=== PATIENT | male | born 1990 | race Caucasian/White ===

== ENCOUNTER 2016-07-05 17:35 | Inpatient (IN) | payer BC, OTHER ==
[~2016-07-05] VITALS: Ht 193 cm; Wt 77.1 kg
[~2016-07-05 17:35] MED LIST: CLON0.1T14 PO; DICY20TA28 PO; DIPH50CA37 PO; Gabapentin PO; HYDR-3895 PO; Ibuprofen PO; METH-33 PO; NICO4GUM BC; QUET50TA PO
--- NOTE | 2016-07-05 20:55 | NUR ---
2054 25 year old, well-nourished, caucasion male admitted ambulatory to room# 319. Gait is steady and brisk. Patient is alert and oriented to person, place, day, date, time and her personal situation. Patient responds to nurse's greeting and introduction with a smile and, " Hi, I was just here the first part of last month. Do you remember me?" Patient's color is pink and his skin is clean, warm, dry and intact. Lung sounds are clear bilaterally and active bowel noted X 4 abdominal Quads, per auscultation. Patient is 6 feet and 4 inches and he weighs 170 lbs. Patient states that he is allergic to Ceclor and Penicillins. Patient states also that he has a seizure history, that is drug-related, the last seizure occurring 'around December,. Patient states that he has a history of anxiety and depression and he takes medication at times for same. Medication ( Topamax 25mg p.o.) brought with patient reconciled per floor protocol. Patient denies any regular PCP. Patient is admitted for (1) Heroin use, daily IV, 1 gram. Last use was 1 gram IV on 07/04/16 at 4 p.m. Patient has been using heroin at this rate for 3 weeks, but has been using heroin( on/off) since age 13 (2) Xanax use, daily P.O., 12 mg. Last use was 12 mg on 07/04/16 at 4 p.m. Patient has been using Xanax at this rate for 3 weeks, but has been using Xanax (on/off) since age 11. Patient longest period of sobriety was 10 months, from April 2013 to January,. Patient states that he has OD'd at least twice. Vital signs are: 98.6-97-18 135/89, O2 Sat 99%, COWS 6. Patient denies any specific discomfort, but he states that he is only just beginning to " feel a little uncomfortable", since his last drug use on 07/04/16. Patient is friendly, cooperative and verbally appropriate. Fluids taken ad vinay and patient states that he is very oriented to his room, nurse call light and [facility] floor. Bed is locked and in lowest position, padded bed rails are up X 2 and call light at patient's hand.
[2016-07-05] MEDS ORDERED: ACETAMINOPHEN 325 MG TABLET PO PRN (21:45)
[2016-07-05] MEDS ORDERED: IBUPROFEN 400 MG TABLET PO PRN (21:45)
[2016-07-05] MEDS ORDERED: MIRALAX 17 GM POWD.PACK PO PRN (21:45)
[2016-07-05] MEDS ORDERED: MAGNESIUM HYDROXIDE 30 ML LIQUID UDC PO PRN (21:45)
[2016-07-05] MEDS ORDERED: CLONIDINE HCL 0.1 MG TABLET PO PRN (21:45)
[2016-07-05] MEDS ORDERED: LORAZEPAM 2 MG/1 ML VIAL IM PRN (21:45)
[2016-07-05] MEDS ORDERED: ONDANSETRON ODT 4 MG TAB.RAPDIS SL PRN (21:45)
[2016-07-05] MEDS ORDERED: DICYCLOMINE HCL 20 MG TABLET PO PRN (21:45)
[2016-07-05] MEDS ORDERED: LORAZEPAM 1 MG TABLET PO PRN (21:45)
[2016-07-05] MEDS ORDERED: BUPRENORPHINE HCL 2 MG TAB.SUBL SL PRN (21:45)
[2016-07-05] MEDS ORDERED: PROMETHAZINE HCL 25 MG/1 ML VIAL IM PRN (21:45)
[2016-07-05] MEDS ORDERED: LOPERAMIDE HCL 2 MG CAPSULE PO PRN ×2 (21:45)
[2016-07-05] MEDS ORDERED: MAG HYDROX/AL HYDROX/SIMETH 30 ML LIQUID UDC PO PRN (21:45)
[2016-07-05] MEDS ORDERED: TOPI25TA8 PO (22:06)
[2016-07-05 22:49] LABS: *AMPHETAMINE, URINE POSITIVE (NEGATIVE); *BARBITURATE, URINE NEGATIVE (NEGATIVE); *CANNABINOID, URINE POSITIVE (NEGATIVE); *COCCAINE, URINE NEGATIVE (NEGATIVE); *OPIATE, URINE POSITIVE (NEGATIVE); *PHENCYCLIDINE SCREEN,URINE NEGATIVE (NEGATIVE)
[2016-07-05] MEDS ORDERED: LORAZEPAM 1 MG TABLET ONE (22:55)
[2016-07-05] MEDS: LORAZEPAM 1 MG TABLET PO PRN (22:55)
[2016-07-05] MEDS ORDERED: CLONIDINE HCL 0.1 MG TABLET ONE (22:55)
[2016-07-05] MEDS ORDERED: IBUPROFEN 400 MG TABLET ONE (22:55)
[2016-07-05] MEDS: diphenhydrAMINE 50 MG CAPSULE PO PRN (22:55)
--- NOTE | 2016-07-05 22:55 | NUR ---
PRN MEDICATIONS: Prn Ativan 1 mg p.o. given for c/o hot/cool skin flashes, increasing anxiety, restlessness and agitation. COWS 6. Prn Benadryl 50 mg p.o. given for sleep.
[2016-07-05] MEDS ORDERED: diphenhydrAMINE 50 MG CAPSULE ONE (22:56)
--- NOTE | 2016-07-05 22:56 | NUR ---
PRN MEDICATIONS: Prn Motrin 400 mg p.o. given for c/o generalized body discomfort and Prn Catapres 0.1 mg p.o. given for c/o hot/cool skin flashes and increasing restlessness, anxiety and agitation. COWS 6
[2016-07-05 23:06] LABS: BASOPHILS % (AUTO) 0.7 % (0.0-2.0); EOSINOPHILS # (AUTO) 0.2 K/uL (0.0-0.7); EOSINOPHILS % (AUTO) 3.4 % (0.0-7.0); HEMATOCRIT 41.1 % (40.0-50.0); HEMOGLOBIN 14.5 g/dL (14.0-18.0); LYMPHOCYTES % (AUTO) 33.6 % (20.5-51.5); MEAN CORPUSCULAR HEMOGLOBIN 31.3 uug (27.0-31.0); MEAN CORPUSCULAR HGB CONC 35 g/dL (32.0-37.0); MONOCYTES # (AUTO) 0.7 K/uL (0.1-1.30); MONOCYTES % (AUTO) 11.3 % (0.0-11.0); NEUTROPHILS # (AUTO) 3.2 K/uL (1.8-8.9); PLATELET COUNT (AUTO) 193 K/uL (150-450); RED BLOOD CELL COUNT(AUTO) 4.62 MIL/uL (4.70-6.10); WHITE BLOOD COUNT (AUTO) 6.1 K/uL (4.0-11.2)
[2016-07-05 23:15] LABS: ETHANOL < 3 MG/DL (0-0)
[2016-07-05 23:19] LABS: ALANINE AMINOTRANSFERASE 25 U/L (16-63); ALBUMIN 3.7 g/dL (3.4-5.0); ALKALINE PHOSPHATASE 47 U/L (50-136); AMYLASE 25 U/L (25-115); ASPARTATE AMINOTRANSFERASE 26 U/L (15-37); BILIRUBIN,TOTAL 0.6 mg/dL (0.2-1.0); CALCIUM 8.7 mg/dL (8.5-10.1); CARBON DIOXIDE 28 mmol/L (21-32); CHLORIDE 101 mmol/L (98-107); CREATININE 1.3 mg/dL (0.6-1.3); GFR 66 mL/min (>60); GLUCOSE 114 mg/dL (74-106); LIPASE 157 U/L (73-393); POTASSIUM 3.3 mmol/L (3.5-5.1); SODIUM SERUM 139 mmol/L (136-145); UREA NITROGEN, BLOOD 12 mg/dL (7-18)
[2016-07-05 23:29] LABS: THYROID STIMULATING HORMONE 0.145 mIU/mL (0.358-3.740)
--- NOTE | 2016-07-05 23:56 | NUR ---
REASSESSMENT PRN MEDICATIONS: Patient is resting quietly in position of comfort with eyes closed and quiet, even, unlabored respirations noted at 14.
[2016-07-06] VITALS: BP 129/81
[2016-07-06 00:04] LABS: HIV-1 p24 ANTIGEN NON REACTIVE (NONREACTIVE); HIV-1/2 ANTIBODY NON REACTIVE (NONREACTIVE)
[2016-07-06] MEDS ORDERED: POTASSIUM CHLORIDE 20 MEQ TAB.PRT.SR PO ONE (00:30)
[2016-07-06] MEDS ORDERED: POTASSIUM CHLORIDE 20 MEQ TAB.PRT.SR ONE (03:27)
--- NOTE | 2016-07-06 03:33 | NUR ---
K-DUR 40 meq p.o. given for K+ level of 3.3, per D.O.
[2016-07-06 04:00] VITALS: BP 121/71
--- NOTE | 2016-07-06 06:30 | NUR ---
0630 Patient slept a total of 6 hours and he was up to the bathroom for 1 void and no stools. Total intake was 1,210 ml p.o. Prn medications given noted separately per floor protocol. V/SS afebrile, COWS 6. Patient is friendly, cooperative and verbally appropriate when awake. Patient is presently sleeping comfortably in stable condition with eyes closed and respirations even, unlabored at 14.
[2016-07-06 08:00] VITALS: BP 126/83
--- NOTE | 2016-07-06 08:00 | NUR ---
START OF SHIFT Pt 25 y/o male admitted for heroin and xanax withdrawal. Pt received in room on bed with eyes closed resting, but easily arousable to name. Pterrla. Skin warm and slightiy mnoist to touch. Respirations even and unlabored. Bilateral hand tremors felt slightly. It was reported that pt slept for 6 hours last night. Bed on lowest position with side rails x2 up for safety. Call light within reach. No distress noted at this time.
[2016-07-06] MEDS: MULTIVITAMINS,THERAPEUTIC TABLET PO SCH (08:57)
[2016-07-06] MEDS: GABAPENTIN 300 MG CAPSULE PO SCH ×3 (08:57→21:25)
[2016-07-06] MEDS ORDERED: TUBERCULIN,PURIF.PROT.DERIV. 5 TU/0.1 ML TEST ID ONE (09:00)
[2016-07-06] MEDS: LORAZEPAM 1 MG TABLET PO PRN (09:25)
[2016-07-06] MEDS: METHOCARBAMOL 750 MG TABLET PO PRN (09:25)
--- NOTE | 2016-07-06 09:25 | NUR ---
PRN Pt with c/o nausea. Zofran po prn per MD order given and tolerated well.
--- NOTE | 2016-07-06 09:25 | NUR ---
PRN Pt with c/o generalized body aches 09/23. Robaxin PO prn per MD order given and tolerated well.
--- NOTE | 2016-07-06 09:25 | NUR ---
PRN CIWA=8. Ativan po prn per MD order given and tolerated well.
--- NOTE | 2016-07-06 10:25 | NUR ---
PRN COWS=13. Subutex po prn per MD order given and tolerated well. Dr. Bertrand made aware.
--- NOTE | 2016-07-06 10:25 | NUR ---
MINNA JONES Pt observed in recreational room observed playing video games.
--- NOTE | 2016-07-06 10:25 | NUR ---
MINNA JONES Pt observed walking around in the hallway. Pt denies any discomfort at this time.
--- NOTE | 2016-07-06 10:25 | NUR ---
PRN EVAL Pt denies any nausea and vomit episode at this time.
--- NOTE | 2016-07-06 10:25 | NUR ---
MINNA MCKEON Pt observed in recreational room playing video games.
[2016-07-06 12:00] VITALS: BP 139/83
[2016-07-06] MEDS: LORAZEPAM 1 MG TABLET PO SCH ×3 (13:41→21:25)
[2016-07-06] MEDS: BUPRENORPHINE HCL 2 MG TAB.SUBL SL SCH ×2 (15:26→21:00)
[2016-07-06 16:00] VITALS: BP 134/87
--- NOTE | 2016-07-06 18:30 | NUR ---
END OF SHIFT Pt 25 y/o male admitted for heroin and xanax withdrawal. Pt alert and oriented to name, place, and time. Perrla. Skin warm and slightly moist to touch. Respirations even and unlabored. Bilateral hand tremors felt slightly. Pt observed in activity throughout the day. Pt medication compliant and tolerated well. No ASE noted. Pt was seen by Dr. Bertrand today. Bed on lowest position with side rails x2 up for safety. Call light within reach. No distress noted at this time.
[2016-07-06 20:00] VITALS: BP 109/69
--- NOTE | 2016-07-06 20:00 | NUR ---
1999 Patient received awake, alert and ambulating back to his room # 319 from [facility] in recreation room. Gait is steady. Upon seeing nurse, patient smiled and states, " Hi Susy. How are you doing tonight?" Patient's color is tannish-pink and his skin is warm, dry and intact. Lung sounds are clear bilaterally per auscultation. Patient is oriented to person, place, day, date, time and his personal situation. Patient states that he had a good day today, going to groups and socialising with staff and other selected patients. Patient states that he is eating and taking fluids ad vinay with no gastric issues so far. Vital signs are: 98.4-77-16 109/69, O2 sat 100 %, COWS 6, CIWA 3. Patient was admitted on 07/05/16 for Heroin and Xanax withdrawal and he is currently on a 5-day Ativan medication taper and a 5-Day Subutex medication taper and he is apparently tolerating these medications well so far. Fall/Seizure precautions continue. Patient denies any pain or other discomforts at this time and he offers no requests. Bed is locked and in lowest position, bed rails are up X 2 and call light within patient's easy reach.
[2016-07-07] VITALS: BP 118/73
[2016-07-07] MEDS: METHOCARBAMOL 750 MG TABLET PO PRN (00:11)
[2016-07-07] MEDS: diphenhydrAMINE 50 MG CAPSULE PO PRN (00:11)
--- NOTE | 2016-07-07 00:11 | NUR ---
PRN MEDICATIONS: Prn Benadryl 50 mg p.o. given per request for sleep medication and Prn Robaxin 750 mg p.o. given per request for c/o mild diffuse generalized body aches, 6/10 pain scale.
--- NOTE | 2016-07-07 01:11 | NUR ---
REASSESSMENT PRN MEDICATIONS: Patient is resting comfortably with eyes closed and quiet, even, unlabored respirations noted at 14.
--- NOTE | 2016-07-07 04:00 | NUR ---
Patient refused v/S, COWS, CIWA to be done at this time.
--- NOTE | 2016-07-07 06:30 | NUR ---
80110 Patient slept a total of 4 hours, going frequently downstairs to the hospital patio to smoke with selected other patients. Total intake was 1,151 ml p.o. and he had 2 voids and 1 stools. Prn medications given noted separately per floor protocol. V/SS afebrile, COWS 6, CIWA 3. Patient is friendly, cooperative and verbally appropriate when awake with somewhat euphoric mood/affect noted. Patient is presently resting comfortably with eyes closed and respirations regular, unlabored at 14. Patient is in stable condition st this time.
[2016-07-07 08:00] VITALS: BP 111/60
--- NOTE | 2016-07-07 08:00 | NUR ---
START OF SHIFT Pt 25 y/o male admitted for heroin and xanax withdrawal. Pt received in room on bed with eyes closed resting on bed, but easily arousable to name. Perrla. Skin warm and slightly moist to touch. Respirations even and unlabored. Bilateral hand tremors felt slightly. It was reported that pt slept for 6 hours last night. Bed on lowest position with side rails x2 up for safety. Call light within reach. No distress noted at this time.
[2016-07-07] MEDS ORDERED: BUPRENORPHINE HCL 2 MG TAB.SUBL SL SCH ×2 (09:00→15:00)
[2016-07-07] MEDS: GABAPENTIN 300 MG CAPSULE PO SCH ×3 (09:04→21:54)
[2016-07-07] MEDS: MULTIVITAMINS,THERAPEUTIC TABLET PO SCH (09:04)
[2016-07-07] MEDS: LORAZEPAM 1 MG TABLET PO SCH ×3 (09:04→21:54)
--- NOTE | 2016-07-07 10:00 | NUR ---
NSG ENTRY Pt observed in recreational room playing video games.
[2016-07-07 12:00] VITALS: BP 120/72
[2016-07-07 13:25] LABS: HCV AB 0.1 s/co ratio (0.0-0.9); HEPATITIS B CORE AB, IgM Negative (Negative); HEPATITIS B SURFACE AG Negative (Negative)
[2016-07-07] MEDS: BUPRENORPHINE HCL 2 MG TAB.SUBL SL SCH ×2 (15:00→21:00)
[2016-07-07 16:00] VITALS: BP 125/77
--- NOTE | 2016-07-07 19:20 | NUR ---
Start of Shift Patient Received. Patient is in activities room participating in group activities. Patient is a 25 year old male, admitted on 07/05/16 for Opiates and Benzo Withdrawal, under the care of Dr. Luis, receiving a 5 day Ativan taper and 5 day Subutex taper. Patient verbalizes allergies to Cefaclor and PCN, wishes to be full code, following a regular diet, skin noted intact, placed on fall and seizure precautions. Past medical history verbalized as anxiety and depression. Per endorsement, patient noted to be compliant with medications and plan of care as ordered. Will continue plan of care as ordered.
[2016-07-07 20:45] VITALS: BP 146/75
--- NOTE | 2016-07-07 22:00 | NUR ---
Medication Refusal Patient noted in bed, awake, and verbally responsive. Breathing even and non labored. no signs of pain or discomfort. Patient noted to refuse routine taper Subutex. COWS noted 6. Patient states "no I dont want to take it. Ill be fine without it. I really dont want to take the Ativan either but I know I should just because Jaqueline had a seizure before." Risks and Benefits explained. Will continue to monitor.
--- NOTE | 2016-07-08 | NUR ---
Vitals, COWS, and CIWA Patient refused 0000 vitals. Patient verbalized "I would rather sleep. Im really tired." Patient is noted in bed sleeping. Breathing even and non labored. No signs of pain or discomfort noted. Patient respirations noted at 14. CIWA and COWS not able to be completed as per order. Will continue to monitor. Addendum: 07/08/16 at 0420 by YVONNE DIAZ LVN Amended: Links added.
--- NOTE | 2016-07-08 04:21 | NUR ---
Vitals, COWS, and CIWA Patient refused 0400 vitals. Patient verbalized "I would rather sleep. Im really tired." Patient is noted in bed sleeping. Breathing even and non labored. No signs of pain or discomfort noted. Patient respirations noted at 14. CIWA and COWS not able to be completed as per order. Will continue to monitor. Addendum: 07/08/16 at 0421 by YVONNE DIAZ LVN Amended: Links added.
--- NOTE | 2016-07-08 07:13 | NUR ---
End of Shift Patient is in bed sleeping. Breathing even and no labored. No signs of pain or discomfort noted. Patient is a 25 year old male, admitted on 07/05/16 for Opiates and Benzo Withdrawal, under the care of Dr. Luis, receiving a 5 day Ativan taper and 5 day Subutex taper. Patient verbalizes allergies to Cefaclor and PCN, wishes to be full code, following a regular diet, skin noted intact, placed on fall and seizure precautions. Past medical history verbalized as anxiety and depression. Patient refused routine Subutex 2100 dose with COWS noted at 6. Patient noted to sleep well throughout the night with no episodes of increased signs and symptoms of withdrawal. Will endorse to continue plan of care as ordered.
[2016-07-08 08:00] VITALS: BP 102/60
--- NOTE | 2016-07-08 08:00 | NUR ---
START OF SHIFT Pt 25 y/o male admitted for heroin and xanax withdrawal. Pt received in room on bed with eyes closed resting on bed, but easily arousable to name. Perrla. Skin warm and slightly moist to touch. Respirations even and unlabored. Bilateral hand tremors felt slightly. It was reported that pt slept for 8 hours last night. Bed on lowest position with side rails x2 up for safety. Call light within reach. No distress noted at this time.
[2016-07-08] MEDS ORDERED: BUPRENORPHINE HCL 2 MG TAB.SUBL SL SCH ×2 (09:00)
[2016-07-08] MEDS: MULTIVITAMINS,THERAPEUTIC TABLET PO SCH (09:24)
[2016-07-08] MEDS: GABAPENTIN 300 MG CAPSULE PO SCH ×3 (09:24→21:00)
[2016-07-08] MEDS: LORAZEPAM 1 MG TABLET PO SCH ×4 (09:24→21:00)
--- NOTE | 2016-07-08 11:39 | NUR ---
NSG ENTRY Pt observed in activity room playing video games at this time. No distress noted at this time.
[2016-07-08 12:00] VITALS: BP 135/71
[2016-07-08] MEDS: BUPRENORPHINE HCL 2 MG TAB.SUBL SL SCH ×2 (14:45→21:00)
[2016-07-08 16:00] VITALS: BP 128/68
--- NOTE | 2016-07-08 19:15 | NUR ---
Start of Shift Patient Received. Patient is in activities room participating in group activities. Patient is a 25 year old male, admitted on 07/05/16 for Opiates and Benzo Withdrawal, under the care of Dr. Luis, receiving a 5 day Ativan taper and 5 day Subutex taper. Patient verbalizes allergies to Cefaclor and PCN, wishes to be full code, following a regular diet, skin noted intact, placed on fall and seizure precautions. Past medical history verbalized as anxiety and depression. Per endorsement, Patient noted to refused routine taper medication. Patient is active in participating in group activities and group socials. All needs attended to promptly. Will continue plan of care as ordered.
[2016-07-08 21:29] VITALS: BP 124/79
--- NOTE | 2016-07-08 21:30 | NUR ---
Medication Refusal 2100 Patient is noted returning from his room. Patient is alert and oriented. Breathing even and non labored. No signs of pain or discomfort noted. COWS 0 and CIWA 0. Patient refused all routine 2100 medications. Patient verbalized "I dont want to take them. I feel Ok." Risks and Benefits explained. Patient still refused. CN and MD made aware. Will continue plan of care as ordered.
[2016-07-08] MEDS: HYDROXYZINE PAMOATE 25 MG CAPSULE PO PRN (23:07)
[2016-07-08] MEDS: diphenhydrAMINE 50 MG CAPSULE PO PRN (23:07)
[2016-07-08] MEDS: METHOCARBAMOL 750 MG TABLET PO PRN (23:08)
--- NOTE | 2016-07-08 23:15 | NUR ---
PRN Medication Administration Patient verbalized increase muscle spasms of lower extremities and increased anxiety. Patient verbalized "I dont know why but my anxiety is really high and my legs are really restless. I just cant fall asleep" PRN Vistaril, Benadryl, and Robaxin administered. Will continue to monitor for effectiveness.
[2016-07-09 00:40] VITALS: BP 141/79
--- NOTE | 2016-07-09 01:00 | NUR ---
PRN Medication Reassessment Patient is noted in bed sleeping. Breathing even and non labored. No signs of pain or discomfort noted. Patient given PRN Vistaril, Benadryl, and Robaxin for increased anxiety, muscles spasms causing restless legs, and inability of falling asleep. PRN Medications all noted to be effective. Will continue to monitor.
--- NOTE | 2016-07-09 04:20 | NUR ---
COWS, CIWA, and Vitals Patient Refused 0400 Vitals prior to bed and verbalized "Ill pass on Vitals." Patient noted in his bed sleeping. Breathing even and non labored. No signs of pain or discomfort noted. Patient respirations noted at 16. CIWA and COWS not able to be completed as per order. Will continue to monitor. Addendum: 07/09/16 at 0501 by YVONNE DIAZ LVN Amended: Links added.
--- NOTE | 2016-07-09 04:59 | NUR ---
COWS, CIWA, and Vitals Patient Refused 0400 Vitals prior to bed and verbalized "Ill pass on Vitals." Patient noted in his bed sleeping. Breathing even and non labored. No signs of pain or discomfort noted. Patient respirations noted at 16. CIWA and COWS not able to be completed as per order. Will continue to monitor. Addendum: 07/09/16 at 0518 by YVONNE DIAZ LVN Entered in Error: DUPLICATE
--- NOTE | 2016-07-09 07:27 | NUR ---
End of Shift Patient is in bed sleeping. Breathing even and no labored. No signs of pain or discomfort noted. Patient is a 25 year old male, admitted on 07/05/16 for Opiates and Benzo Withdrawal, under the care of Dr. Luis, receiving a 5 day Ativan taper and 5 day Subutex taper. Patient verbalizes allergies to Cefaclor and PCN, wishes to be full code, following a regular diet, skin noted intact, placed on fall and seizure precautions. Past medical history verbalized as anxiety and depression. Patient refused routine 2100 routine medications. MD made aware. PRN Vistaril, Robaxin, and Benadryl given for increased anxiety, restless legs and inability of falling asleep. PRN Medications noted to be effective. Will endorse to continue plan of care as ordered.
--- NOTE | 2016-07-09 07:30 | NUR ---
START OF SHIFT Pt is a 25 yr old male, AA&Ox3. Pt was admitted on 07/05/16 for Opiate/Benzo Dependence and is on 5 day Subutex and Ativan taper as ordered. Medication cooper well. Pt is full code, regular diet and allergies to PCN and Cefaclor. Pt reports of PMH of Anxiety and Depression. Pt received Vistaril PRN, Benadryl PRN and Robaxin PRN during the night. Medication was effective. Pt remains in bed resting with respirations even and unlabored. No acute distress noted. Skin is intact, warm and dry. No tremors seen or felt. Pt denies any n/v. Safety precautions observed. Will continue to monitor.
[2016-07-09 08:00] VITALS: BP 104/52
[2016-07-09] MEDS ORDERED: BUPRENORPHINE HCL 2 MG TAB.SUBL SL SCH (09:00)
[2016-07-09] MEDS: BUPRENORPHINE HCL 2 MG TAB.SUBL SL SCH ×3 (09:49→21:00)
[2016-07-09] MEDS: MULTIVITAMINS,THERAPEUTIC TABLET PO SCH (09:49)
[2016-07-09] MEDS: GABAPENTIN 300 MG CAPSULE PO SCH ×3 (09:49→21:39)
[2016-07-09] MEDS: LORAZEPAM 1 MG TABLET PO SCH ×3 (09:49→21:00)
[2016-07-09 12:00] VITALS: BP 130/87
--- NOTE | 2016-07-09 14:45 | NUR ---
MEDICATION REFUSED Pt refused to take Subutex 2ml SL, Ativan 1mg PO and Neurontin 600mg as scheduled at 1500. Pt was educated on medication regime. Pt was able to verbalize understanding but continued to refuse medication.
[2016-07-09 16:56] VITALS: BP 128/82
--- NOTE | 2016-07-09 19:10 | NUR ---
END OF SHIFT Pt is a 25 yr old male, AA&Ox3. Pt was admitted on 07/05/16 for Opiate/Benzo Dependence and is on 5 day Subutex and Ativan taper as ordered. Medication cooper well. Pt is full code, regular diet and allergies to PCN and Cefaclor. Pt reports of PMH of Anxiety and Depression. Pt has been attending group sessions. Pt refused to take Ativan 1mg PO, Subutex 2mg SL and Neurontin 600mg PO as schedules at 1500. Pt was educated on medication regime. Pt was able to verbalize understanding but continued to refuse. No PRN's were given during the day. Last COWS score was 0, CIWA score was 0 at 1600. No acute distress noted. Skin is intact, warm and dry. No tremors seen or felt. Pt denies any n/v. Safety precautions observed. Call light is within reach.
[2016-07-09 20:07] VITALS: BP 142/84
[2016-07-09] MEDS: diphenhydrAMINE 50 MG CAPSULE PO PRN (21:38)
[2016-07-09] MEDS: HYDROXYZINE PAMOATE 25 MG CAPSULE PO PRN (21:38)
[2016-07-09] MEDS: METHOCARBAMOL 750 MG TABLET PO PRN (21:39)
--- NOTE | 2016-07-09 21:40 | NUR ---
Medication Refusal/ PRN Medication Administration Patient refused routine taper medications. Risks and Benefits explained. Patient able to verbalize understanding. Patient states "I dont want those medications because I feel too out of it with them." Patient verbalizing increased anxiety, muscle spasms, and inability of falling asleep. PRN Vistaril, Robaxin, and Benadryl given. All needs attended to promptly. Will continue to monitor.
--- NOTE | 2016-07-09 23:00 | NUR ---
PRN Medication Reassessment Patient is noted in bed sleeping. Breathing even and non labored. No signs of pain or discomfort noted. Patient was given PRN Vistaril, Benadryl, and Robaxin for increased anxiety, inability of falling asleep and increased muscles spasms. Patient noted to sleep with no interruptions. PRN medications noted to be effective. Will continue to monitor.
--- NOTE | 2016-07-10 00:49 | NUR ---
Vitals, COWS, and CIWA Patient refused 0000 vitals. Patient verbalized "No ill pass on vitals." Patient is noted in bed sleeping. Breathing even and non labored. No signs of pain or discomfort noted. Patient respirations noted at 14. CIWA and COWS not able to be completed as per order. Will continue to monitor. Addendum: 07/10/16 at 0050 by YVONNE DIAZ LVN Amended: Links added.
--- NOTE | 2016-07-10 04:38 | NUR ---
Vitals, COWS, and CIWA Patient refused 0400 vitals. Patient verbalized "I would rather sleep. Im really tired." Patient is noted in bed sleeping. Breathing even and non labored. No signs of pain or discomfort noted. Patient respirations noted at 14. CIWA and COWS not able to be completed as per order. Will continue to monitor. Addendum: 07/10/16 at 0438 by YVONNE DIAZ LVN Amended: Links added.
--- NOTE | 2016-07-10 07:40 | NUR ---
START OF SHIFT Pt is a 25 yr old male, AA&Ox3. Pt was admitted on 07/05/16 for Opiate/Benzo Dependence and is on 5 day Subutex and Ativan taper as ordered. Medication cooper well. Pt is full code, regular diet and allergies to PCN and Cefaclor. Pt reports of PMH of Anxiety and Depression. Pt received Vistaril PRN, Benadryl PRN and Robaxin PRN during the night. Medication was effective. Pt slept for 7hrs. Last COWS and CIWA score was 0. Pt remains in bed resting with respirations even and unlabored. No acute distress noted. Skin is intact, warm and dry. No tremors seen or felt. Pt denies any n/v. Safety precautions observed. Will continue to monitor.
[2016-07-10 08:00] VITALS: BP 102/61
[2016-07-10] MEDS ORDERED: BUPRENORPHINE HCL 2 MG TAB.SUBL SL SCH ×2 (09:00)
[2016-07-10] MEDS ORDERED: LORAZEPAM 1 MG TABLET PO SCH ×2 (09:00)
[2016-07-10] MEDS: GABAPENTIN 300 MG CAPSULE PO SCH ×3 (09:49→21:39)
[2016-07-10] MEDS: MULTIVITAMINS,THERAPEUTIC TABLET PO SCH (09:49)
[2016-07-10 12:00] VITALS: BP 145/93
[2016-07-10 16:00] VITALS: BP 148/90
[2016-07-10 18:14] LABS: *AMPHETAMINE, URINE NEGATIVE (NEGATIVE); *BARBITURATE, URINE NEGATIVE (NEGATIVE); *CANNABINOID, URINE POSITIVE (NEGATIVE); *COCCAINE, URINE NEGATIVE (NEGATIVE); *OPIATE, URINE POSITIVE (NEGATIVE); *PHENCYCLIDINE SCREEN,URINE NEGATIVE (NEGATIVE)
--- NOTE | 2016-07-10 19:11 | NUR ---
END OF SHIFT Pt is a 25 yr old male, AA&Ox3. Pt was admitted on 07/05/16 for Opiate/Benzo Dependence and has completed Subutex and Ativan taper as ordered. Medication cooper well. Pt is full code, regular diet and allergies to PCN and Cefaclor. Pt reports of PMH of Anxiety and Depression. Pt has been cooperative with plan of care and medication regime. Pt has been attending group sessions. No PRN's were given during the day. Last COWS score was 1, CIWA score was 0 at 1600. No acute distress noted. Skin is intact, warm and dry. No tremors seen or felt. Pt denies any n/v. Safety precautions observed. Pt is to be discharged tomorrow on 07/11/16. Urine drug screen is complete. Call light is within reach.
--- NOTE | 2016-07-10 19:50 | NUR ---
START OF SHIFT NOTE Received report from day shift nurse. Pt is 25 y o male, admitted on 07/05/16 for heroin (1 g daily for 3 wks) and xanax (12 g daily for 3 wks) dependence. Pt completed 5 day Ativan taper, scheduled for discharge 07/11/16. Pt aaox4, reports minimal anxiety r/t discharge. Encouraged t utilize relaxation techniques, verbalized understanding. No tremors observed, pt denies tingling/ burning. Skin intact, warm, minimally sweaty. RR unlabored, lung sounds clear. Heart rate regular. Pt denies n/v, bowel sounds active 4. PMH of anxiety, depression,. Pt is on fall and seizure precautions. Pt full cde , regular diet, allergic to PCN and Ceclor. Call light within reach, side rails up x 2, bed locked in lowest position. Will continue with plan of care.
[2016-07-10 20:00] VITALS: BP 130/82
--- NOTE | 2016-07-10 21:05 | NUR ---
PRN MEDICATIONS:VISTARIL AND BENADRYL Pt c/o anxiety 06/23 and insomnia. Per pt anxiety is r/t discharge in am. Relaxation techniques (dep breathing) not effective. VSS. Administered prn Vistaril 50 mg and Benadryl 50 mg prn PO. Side rails up x 2, call light within reach, bed locked.
[2016-07-10] MEDS: diphenhydrAMINE 50 MG CAPSULE PO PRN (21:39)
[2016-07-10] MEDS: HYDROXYZINE PAMOATE 25 MG CAPSULE PO PRN (21:39)
--- NOTE | 2016-07-10 22:30 | NUR ---
REASSESSMENT Pt in rec room, states anxiety subsided. Pt states he will try to got to bed in 30 mni. All needs met
--- NOTE | 2016-07-11 | NUR ---
VS, COWS, CIWA Pt refused VS and COWS/ CIWA assessment, state he wants to sleep and not to be bothered. Pt asleep, RR even and unlabored at 15 breaths per minute. Side rails up x 2, call light within reach, bed locked in lowest position. Will continue to monitor Addendum: 07/11/16 at 0718 by ELZA JOSHI RN Amended: Links added.
--- NOTE | 2016-07-11 04:00 | NUR ---
VS, COWS, CIWA Pt refused VS and COWS/ CIWA assessment, state he wants to sleep and not to be bothered. Pt asleep, RR even and unlabored at 19 breaths per minute. Side rails up x 2, call light within reach, bed locked in lowest position. Will continue to monitor Addendum: 07/11/16 at 0719 by ELZA JOSHI RN Amended: Links added.
--- NOTE | 2016-07-11 07:26 | NUR ---
END OF SHIFT NOTE Pt is 25 y o male, admitted on 07/05/16 for heroin (1 g daily for 3 wks) and xanax (12 g daily for 3 wks) dependence. Pt completed 5 day Ativan taper, scheduled for discharge 07/11/16. UDS collected and resulted, dicharge orders ready and placed in chart. Pt c/o anxiety, last COWS 2. VSS. Pt received prn Vistaril 50 mg and prn Benadryl 50 mg at 2105, was effective. Pt slept for 5 hrs; PO intake 946 ml, urination 1. PMH of anxiety, depression,. Pt is on fall and seizure precautions. Pt full code , regular diet, allergic to PCN and Ceclor. Call light within reach, side rails up x 2, bed locked in lowest position. Report endorsed to days shift
--- NOTE | 2016-07-11 07:28 | NUR ---
Start Of Shift Pt is 25 year old male, admitted on 07/05/16 for heroin and Xanax dependence. Pt full code regular diet on fall and seizure precautions reports being allergic to Cefaclor and Penicillin. Pt has completed his 5 day Subutex and Ativan tapers as ordered and tolerated well. Pt's last CIWA score was a 3 and last COWS was a 3 taken at 1999. Pt is scheduled for discharge today. Pt received PRN Vistaril 50 mg and Benadryl 50mg last night, which were effective per table games shift manager nurse. Pt slept for a total of 5 hr's. All safety measures in place, Call light within reach, side rails up x 2, bed locked in lowest position, will continue to monitor and provide support.
[2016-07-11 08:00] VITALS: BP 145/87
[2016-07-11] MEDS ORDERED: HYDR-3895 PO (08:25)
[2016-07-11] MEDS ORDERED: DIPH50CA37 PO (08:25)
[2016-07-11] MEDS: MULTIVITAMINS,THERAPEUTIC TABLET PO SCH (09:13)
[2016-07-11] MEDS: GABAPENTIN 300 MG CAPSULE PO SCH (09:13)
--- NOTE | 2016-07-11 09:55 | NUR ---
DISCHARGE NOTE Pt is in stable condition. Vitals WNL, Pt alert and oriented x4, skin intact, Pt denies any SI/HI. All discharge paperwork completed dated and signed. Pt educated about discharge instructions, what to do after discharge when to contact MD as well as the s/s reportable to MD, pt verbalized understanding. Pt was provided with all of his discharge paperwork. Pt's last COWS:1 and CIWA:1 taken at 0800. Pt was discharged from [facility] on 07/11/16 at 0950. Pt left the building with all of his belongings, prescriptions and medications. MD and psychiatrist have been contacted notified and aware of pt's d/c.
== END 2016-07-11 09:50 | disposition other institution (70) | DRG 895 ==
LOC: SRC 20:33
PROVIDERS: ADMIT Internal Medicine; ATTEND Internal Medicine
PROC: HZ2ZZZZ Detoxification Services for Substance Abuse Treatment (ICD-10-PCS; principal; 2016-07-05)
PROC: HZ41ZZZ Group Counseling for Substance Abuse Treatment, Behavioral (ICD-10-PCS; 2016-07-06)
DX: F11.23 Opioid dependence with withdrawal (principal); F41.9 Anxiety disorder, unspecified; Z59.0 Homelessness; F17.210 Nicotine dependence, cigarettes, uncomplicated; Z88.0 Allergy status to penicillin; E87.6 Hypokalemia; F12.90 Cannabis use, unspecified, uncomplicated; F15.10 Other stimulant abuse, uncomplicated; E07.81 Sick-euthyroid syndrome; Z91.19 Patient's noncompliance with other medical treatment and regimen; F13.230 Sedative, hypnotic or anxiolytic dependence with withdrawal, uncomplicated
CPT/HCPCS: 36415; 70030-TC; 80307; 80324; 80346; 80349; 80361; 83690; 83735; 84443; 85025; 86592; 86705; 86803; 87340; 87806; A4663; G6040-TC; Q0162; Q0163

== ENCOUNTER 2016-09-02 00:24 | Inpatient (IN) | payer BC, OTHER ==
[~2016-09-02] VITALS: Ht 195.6 cm; Wt 81.6 kg
[~2016-09-02 00:24] MED LIST changes: -QUET50TA PO; +TOPI25TA8 PO
[2016-09-02] MEDS ORDERED: MAGNESIUM HYDROXIDE 30 ML LIQUID UDC PO PRN (02:00)
[2016-09-02] MEDS ORDERED: DIAZEPAM 10 MG TABLET PO PRN ×2 (02:00)
[2016-09-02] MEDS ORDERED: DIAZEPAM 5 MG TABLET PO PRN (02:00)
[2016-09-02] MEDS ORDERED: ONDANSETRON ODT 4 MG TAB.RAPDIS SL PRN (02:00)
[2016-09-02] MEDS ORDERED: IBUPROFEN 400 MG TABLET PO PRN (02:00)
[2016-09-02] MEDS ORDERED: METHOCARBAMOL 750 MG TABLET PO PRN (02:00)
[2016-09-02] MEDS ORDERED: ONDANSETRON 4 MG/2 ML VIAL IM PRN (02:00)
[2016-09-02] MEDS ORDERED: LOPERAMIDE HCL 2 MG CAPSULE PO PRN ×2 (02:00)
[2016-09-02] MEDS ORDERED: ACETAMINOPHEN 325 MG TABLET PO PRN (02:00)
[2016-09-02] MEDS ORDERED: MAG HYDROX/AL HYDROX/SIMETH 30 ML LIQUID UDC PO PRN (02:00)
[2016-09-02] MEDS ORDERED: DICYCLOMINE HCL 20 MG TABLET PO PRN (02:00)
[2016-09-02] MEDS ORDERED: MIRALAX 17 GM POWD.PACK PO PRN (02:00)
[2016-09-02 04:00] VITALS: BP 120/63
[2016-09-02] MEDS ORDERED: BUPRENORPHINE HCL 2 MG TAB.SUBL SL PRN (05:45)
[2016-09-02] MEDS ORDERED: LORAZEPAM 2 MG/1 ML VIAL IM PRN (05:45)
[2016-09-02 08:00] VITALS: BP 124/76
[2016-09-02] MEDS: MULTIVITAMINS,THERAPEUTIC TABLET PO SCH (08:50)
[2016-09-02] MEDS ORDERED: TUBERCULIN,PURIF.PROT.DERIV. 5 TU/0.1 ML TEST ID ONE (09:00)
[2016-09-02] MEDS ORDERED: NICOTINE POLACRILEX 4 MG GUM-PK OF TEN BC PRN (10:45)
[2016-09-02 12:00] VITALS: BP 140/73
[2016-09-02 12:26] LABS: *AMPHETAMINE, URINE POSITIVE (NEGATIVE); *BARBITURATE, URINE NEGATIVE (NEGATIVE); *CANNABINOID, URINE POSITIVE (NEGATIVE); *COCCAINE, URINE NEGATIVE (NEGATIVE); *OPIATE, URINE POSITIVE (NEGATIVE); *PHENCYCLIDINE SCREEN,URINE NEGATIVE (NEGATIVE)
[2016-09-02] MEDS: GABAPENTIN 300 MG CAPSULE PO SCH ×2 (13:00→17:34)
[2016-09-02] MEDS ORDERED: Medication Not On Formulary EA ([Gabapentin] (Neurontin) 600 MG) PO SCH (13:00)
[2016-09-02] MEDS: HYDROXYZINE PAMOATE 25 MG CAPSULE PO PRN (14:50)
[2016-09-02 15:07] LABS: BASOPHILS # (AUTO) 0.1 K/uL (0.0-8.0); BASOPHILS % (AUTO) 1.1 % (0.0-2.0); EOSINOPHILS # (AUTO) 0.1 K/uL (0.0-0.7); EOSINOPHILS % (AUTO) 2.2 % (0.0-7.0); HEMATOCRIT 47.5 % (40-50); LYMPHOCYTES # (AUTO) 1.4 K/UL (0.8-4.8); LYMPHOCYTES % (AUTO) 25.5 % (20.5-51.5); MEAN CORPUSCULAR HEMOGLOBIN 30.5 UUG (27.0-31.0); MEAN CORPUSCULAR HGB CONC 34 g/dL (32.0-37.0); MEAN CORPUSCULAR VOLUME 90.5 FL (82.0-92.0); MONOCYTES # (AUTO) 0.8 K/UL (0.1-1.30); NEUTROPHILS % (AUTO) 57.2 % (38.5-71.5); PLATELET COUNT (AUTO) 189 K/UL (150-450); RED BLOOD CELL COUNT(AUTO) 5.25 MIL/UL (4.7-6.1); RED CELL DISTRIBUTION WIDTH 12.4 % (11.5-14.5); WHITE BLOOD COUNT (AUTO) 5.4 K/UL (4.0-11.2)
[2016-09-02 15:15] LABS: ALANINE AMINOTRANSFERASE 34 U/L (16-63); ALBUMIN 4.1 g/dL (3.4-5.0); ALKALINE PHOSPHATASE 45 U/L (50-136); AMYLASE 18 U/L (25-115); ASPARTATE AMINOTRANSFERASE 36 U/L (15-37); CARBON DIOXIDE 28 mmol/L (21-32); CHLORIDE 98 mmol/L (98-107); GFR 60 mL/min (>60); GLUCOSE 129 mg/dL (74-106); LIPASE 103 U/L (73-393); POTASSIUM 3.8 mmol/L (3.5-5.1); SODIUM SERUM 134 mmol/L (136-145); TOTAL PROTEIN, SERUM 7.6 g/dL (6.4-8.2); UREA NITROGEN, BLOOD 18 mg/dL (7-18)
[2016-09-02 15:16] LABS: CREATININE 1.4 mg/dL (0.6-1.3)
[2016-09-02 15:33] LABS: ETHANOL < 3 MG/DL (0-0)
[2016-09-02 15:45] LABS: HIV-1 p24 ANTIGEN NON REACTIVE (NONREACTIVE); HIV-1/2 ANTIBODY NON REACTIVE (NONREACTIVE)
[2016-09-02 16:00] VITALS: BP 123/76
[2016-09-02] MEDS: ESCITALOPRAM OXALATE 10 MG TABLET PO SCH (17:34)
[2016-09-02 20:00] VITALS: BP 117/77
[2016-09-02] MEDS: diphenhydrAMINE 50 MG CAPSULE PO PRN (23:58)
[2016-09-03 08:00] VITALS: BP 133/67
[2016-09-03] MEDS ORDERED: DIAZEPAM 5 MG TABLET PO PRN (08:45)
[2016-09-03] MEDS: HYDROXYZINE PAMOATE 25 MG CAPSULE PO PRN (09:18)
[2016-09-03] MEDS: MULTIVITAMINS,THERAPEUTIC TABLET PO SCH (09:18)
[2016-09-03] MEDS: ESCITALOPRAM OXALATE 10 MG TABLET PO SCH (09:18)
[2016-09-03] MEDS: GABAPENTIN 300 MG CAPSULE PO SCH ×3 (09:18→17:13)
[2016-09-03 12:00] VITALS: BP 122/85
[2016-09-03] MEDS ORDERED: DIAZEPAM 10 MG TABLET PO SCH (13:00)
[2016-09-03] MEDS: DIAZEPAM 5 MG TABLET PO SCH ×3 (14:05→21:50)
[2016-09-03] MEDS: BUPRENORPHINE HCL 2 MG TAB.SUBL SL SCH ×2 (15:34→21:50)
[2016-09-03 16:00] VITALS: BP 124/82
[2016-09-03] MEDS: TOPIRAMATE 25 MG TABLET PO SCH (17:13)
[2016-09-03 20:00] VITALS: BP 115/75
[2016-09-04 08:00] VITALS: BP 108/68
[2016-09-04] MEDS: TOPIRAMATE 25 MG TABLET PO SCH ×2 (08:42→17:00)
[2016-09-04] MEDS: MULTIVITAMINS,THERAPEUTIC TABLET PO SCH (08:43)
[2016-09-04] MEDS: ESCITALOPRAM OXALATE 10 MG TABLET PO SCH (08:43)
[2016-09-04] MEDS: GABAPENTIN 300 MG CAPSULE PO SCH ×3 (08:43→17:02)
[2016-09-04] MEDS: DIAZEPAM 5 MG TABLET PO SCH ×3 (08:44→21:29)
[2016-09-04] MEDS: BUPRENORPHINE HCL 2 MG TAB.SUBL SL SCH ×3 (08:44→21:29)
[2016-09-04 12:00] VITALS: BP 126/74
[2016-09-04 16:00] VITALS: BP 130/71
[2016-09-04 20:00] VITALS: BP 119/72
[2016-09-05 03:06] LABS: HCV AB <0.1 s/co ratio (0.0-0.9); HEPATITIS B CORE AB, IgM Negative (Negative); HEPATITIS B SURFACE AG Negative (Negative)
[2016-09-05 08:00] VITALS: BP 129/64
[2016-09-05] MEDS ORDERED: BUPRENORPHINE HCL 2 MG TAB.SUBL SL SCH (09:00)
[2016-09-05] MEDS: MULTIVITAMINS,THERAPEUTIC TABLET PO SCH (09:08)
[2016-09-05] MEDS: ESCITALOPRAM OXALATE 10 MG TABLET PO SCH (09:08)
[2016-09-05] MEDS: TOPIRAMATE 25 MG TABLET PO SCH ×2 (09:08→16:30)
[2016-09-05] MEDS: GABAPENTIN 300 MG CAPSULE PO SCH ×3 (09:09→16:30)
[2016-09-05] MEDS: DIAZEPAM 5 MG TABLET PO SCH ×2 (09:09→20:48)
[2016-09-05 12:00] VITALS: BP 122/76
[2016-09-05 16:00] VITALS: BP 138/90
[2016-09-05 20:00] VITALS: BP 118/85
[2016-09-05] MEDS: diphenhydrAMINE 50 MG CAPSULE PO PRN (23:00)
[2016-09-05] MEDS: CLONIDINE HCL 0.1 MG TABLET PO PRN (23:00)
[2016-09-06] VITALS: BP 110/67
[2016-09-06 08:00] VITALS: BP 99/53
[2016-09-06] MEDS ORDERED: ESCITALOPRAM OXALATE 10 MG TABLET PO SCH (09:00)
[2016-09-06] MEDS: TOPIRAMATE 25 MG TABLET PO SCH ×2 (10:01→18:27)
[2016-09-06] MEDS: GABAPENTIN 300 MG CAPSULE PO SCH ×3 (10:01→18:26)
[2016-09-06] MEDS: MULTIVITAMINS,THERAPEUTIC TABLET PO SCH (10:01)
[2016-09-06 12:00] VITALS: BP 121/55
[2016-09-06] MEDS ORDERED: HYDR-3895 PO (14:42)
[2016-09-06] MEDS ORDERED: ESCI10TA PO (14:42)
[2016-09-06] MEDS ORDERED: Gabapentin PO (14:42)
[2016-09-06 16:00] VITALS: BP 136/70
[2016-09-06 20:00] VITALS: BP 126/63
[2016-09-06 21:43] LABS: *AMPHETAMINE, URINE NEGATIVE (NEGATIVE); *BARBITURATE, URINE NEGATIVE (NEGATIVE); *CANNABINOID, URINE POSITIVE (NEGATIVE); *COCCAINE, URINE NEGATIVE (NEGATIVE); *OPIATE, URINE POSITIVE (NEGATIVE); *PHENCYCLIDINE SCREEN,URINE NEGATIVE (NEGATIVE)
[2016-09-06] MEDS: CLONIDINE HCL 0.1 MG TABLET PO PRN (22:14)
[2016-09-06] MEDS: diphenhydrAMINE 50 MG CAPSULE PO PRN (22:14)
[2016-09-07] VITALS: BP 97/44
[2016-09-07 04:00] VITALS: BP 110/56
[2016-09-07 08:00] VITALS: BP 96/64
[2016-09-07] MEDS: GABAPENTIN 300 MG CAPSULE PO SCH (08:24)
[2016-09-07] MEDS: MULTIVITAMINS,THERAPEUTIC TABLET PO SCH (08:25)
[2016-09-07] MEDS: TOPIRAMATE 25 MG TABLET PO SCH (08:25)
[2016-09-07] MEDS ORDERED: ESCITALOPRAM OXALATE 10 MG TABLET PO SCH (09:00)
== END 2016-09-07 09:11 | DRG 895 ==
LOC: SRC 01:17
PROVIDERS: ADMIT Internal Medicine; ATTEND Internal Medicine
PROC: HZ2ZZZZ Detoxification Services for Substance Abuse Treatment (ICD-10-PCS; principal; 2016-09-02)
PROC: HZ41ZZZ Group Counseling for Substance Abuse Treatment, Behavioral (ICD-10-PCS; 2016-09-04)
DX: F11.23 Opioid dependence with withdrawal (principal); F13.20 Sedative, hypnotic or anxiolytic dependence, uncomplicated; F33.1 Major depressive disorder, recurrent, moderate; N17.9 Acute kidney failure, unspecified; E07.81 Sick-euthyroid syndrome; E86.0 Dehydration; F41.9 Anxiety disorder, unspecified; Z79.899 Other long term (current) drug therapy; Z72.0 Tobacco use; E05.90 Thyrotoxicosis, unspecified without thyrotoxic crisis or storm
CPT/HCPCS: 36415; 70030-TC; 71010; 80307; 80324; 80346; 80349; 80361; 83690; 83735; 84443; 85025; 86592; 86705; 86803; 87340; 87806; 93005; A4663; G6040-TC; Q0163

== ENCOUNTER 2016-09-26 16:50 | Inpatient (IN) | payer BC, OTHER ==
[~2016-09-26] VITALS: Ht 195.6 cm; Wt 82.6 kg
[~2016-09-26 16:50] MED LIST changes: -CLON0.1T14 PO; +ESCI10TA PO; -NICO4GUM BC; +NICO4GUM38 BC; +TOPI25TA PO; -TOPI25TA8 PO
--- NOTE | 2016-09-26 20:25 | NUR ---
Pre-admission assessment Patient is a 26-year old, male, seen at intake, AAOx4, no SOB and no anxiety noted at this time. Discussed with patient admission policies of the unit. Patient is coherent and able to respond to questions appropriately. Patient reported that he is homeless. Pt is ambulatory with steady gait. Pt reports that he relapsed immediately since discharge from [facility] last 09/07/2016, and has been using these substance daily: Heroin 1 gm IV, Xanax 8-10 mg PO, Methamphetamine 0.5 gm IV, Cannabis 2 gm smoke/oral inhalation. Vital signs taken and as follows: YT=506/89, P=80, O2 sat on KQ=516%, RR=18, T=98.1. Pt verbalized instructions and teachings regarding disposal of narcotic and other controlled home meds, unit protocols such as taking of vital signs Q4H and handling and disposal of contraband.
[2016-09-26 20:45] VITALS: BP 127/89
--- NOTE | 2016-09-26 21:00 | NUR ---
ADMISSION Patient is a 26-year old, male, admitted and escorted by [facility] at 2034 to unit. Patient verbalized that he is homeless since . Skin check done, no open skin noted. Patient denies Suicidal Ideation nor Homicidal Ideation. No edema noted. Pt is ambulatory with steady gait. Pt stands 6'5" and weighs 182 pounds per bed scale. Vital signs are as follows: BP-127/82, T-98.3, P-77, RR-18 and SPO2 on RA=99%. Patient is AAOx4 and with no anxiety noted at this time. Lung sounds clear bilaterally upon auscultation. No cough noted and bowel sounds are present on all quadrants. PERRLA and pupils are 2 mm upon visual check. Pt reports being allergic to Penicillins and Cefaclor, on Regular Diet and is Full Code. Pt reports withdrawal-induced seizures from Xanax, last was in 12/2014. Per pt, withdrawal symptoms are sweating, chills, flushed skin, nausea and vomiting, anxiety, fatigue and restless legs. Pt reports that he relapsed immediately since discharge from [facility] last 09/07/2016, and has been using these substance daily: 1) Heroin 1 gm IV daily, last use was 09/26/2016 0900, 1gm IV. 2) Xanax 8-10 mg PO daily, last use was 09/26/2016 0900, 8 mg PO. 3) Methamphetamine 0.5 gm IV daily, last use was 09/25/2016 2100 0.5 gm IV. 4) Cannabis 2 gm smoke/oral inhalation daily, last use was 09/24/2016 1500, 2 gm smoked/oral inhalation. Patient verbalized the she does not take other substances besides the one mentioned above. Patient informed PMHx of Anxiety, Depression and Withdrawal-induced Seizures-last seizure was on 12/2014. Per pt, he does not take any prescribed medications between 09/07/2016 and today. No PCP nor Psych MD as of the moment. Patient reports smoking cigarettes, about 1/2 pack daily. Oriented patient to room and instructed with the use of the call light, placed within reach. Fall, universal, seizure and safety precautions implemented. No c/o significant pain at this time. All needs met. Information relayed to Dr. Luis. Patient refused PNA vaccine and Flu vaccine is out of season. COWS=5, CIWA=5. Will continue to monitor.
[2016-09-27] VITALS: BP 117/68
[2016-09-27] MEDS ORDERED: MAG HYDROX/AL HYDROX/SIMETH 30 ML LIQUID UDC PO PRN (00:15)
[2016-09-27] MEDS ORDERED: LOPERAMIDE HCL 2 MG CAPSULE PO PRN ×2 (00:15)
[2016-09-27] MEDS ORDERED: ACETAMINOPHEN 325 MG TABLET PO PRN (00:15)
[2016-09-27] MEDS ORDERED: MIRALAX 17 GM POWD.PACK PO PRN (00:15)
[2016-09-27] MEDS ORDERED: LORAZEPAM 1 MG TABLET PO PRN ×2 (00:15)
[2016-09-27] MEDS ORDERED: CLONIDINE HCL 0.1 MG TABLET PO PRN (00:15)
[2016-09-27] MEDS ORDERED: MAGNESIUM HYDROXIDE 30 ML LIQUID UDC PO PRN (00:15)
[2016-09-27] MEDS ORDERED: IBUPROFEN 400 MG TABLET PO PRN (00:15)
[2016-09-27] MEDS ORDERED: LORAZEPAM 2 MG/1 ML VIAL IM PRN (00:15)
[2016-09-27] MEDS ORDERED: ONDANSETRON ODT 4 MG TAB.RAPDIS SL PRN (00:15)
[2016-09-27] MEDS ORDERED: ONDANSETRON 4 MG/2 ML VIAL IM PRN (00:15)
[2016-09-27] MEDS ORDERED: BUPRENORPHINE HCL 2 MG TAB.SUBL SL PRN (00:15)
[2016-09-27] MEDS ORDERED: DICYCLOMINE HCL 20 MG TABLET PO PRN (00:15)
[2016-09-27 04:00] VITALS: BP 99/56
--- NOTE | 2016-09-27 07:10 | NUR ---
End of Shift Patient is a 26-year old, male, admitted for Heroin, Xanax, Methamphetamine and Cannabis Dependence. With reported PMHx of Anxiety, Depression and Withdrawal-induced seizures in 12/2014. Pt is ambulatory with steady gait and with no skin issues. Pt reports being allergic to Penicillins and Cefaclor, on Regular Diet and is Full Code. Pt is AAOx4 and with no anxiety at this time. No SOB noted. Fall, universal, safety and seizure precaution in place. Call light within reach. No facial grimacing nor c/o pain at this time. Latest COWS=4, CIWA=4, slept for 7 hours. Endorsed to AM shift nurse for continuity of care.
--- NOTE | 2016-09-27 07:42 | NUR ---
START OF SHIFT NOTE: Received report from material handler 1st shift nurse. Patient is a 26-year old, male, admitted 09-26-16 for Heroin, Xanax, Methamphetamine and Cannabis Dependence. Pt currently on prn medications only. Pt is alert and oriented X4. Color good, skin warm and dry. Respirations even and unlabored. Resting in bed. Pt provided UDS. Safety precautions observed. Call light within reach. Will continue to monitor.
[2016-09-27 08:43] LABS: *AMPHETAMINE, URINE POSITIVE (NEGATIVE); *BARBITURATE, URINE NEGATIVE (NEGATIVE); *CANNABINOID, URINE POSITIVE (NEGATIVE); *COCCAINE, URINE NEGATIVE (NEGATIVE); *OPIATE, URINE POSITIVE (NEGATIVE); *PHENCYCLIDINE SCREEN,URINE NEGATIVE (NEGATIVE)
[2016-09-27] MEDS: FOLIC ACID 1 MG TABLET PO SCH (08:44)
[2016-09-27] MEDS: MULTIVITAMINS,THERAPEUTIC TABLET PO SCH (08:44)
--- NOTE | 2016-09-27 08:57 | NUR ---
VSS CIWA 14 pt c/o chills, muscle aches, sweating, anxiety. Subutex 4mg sl prn administered. Addendum: 09/27/16 at 1001 by GRACE COPELAND RN COWS score 15 CIWA was in error
[2016-09-27 09:04] VITALS: BP 111/66
--- NOTE | 2016-09-27 09:50 | NUR ---
Pt states "I feel much better" after Subutex prn COWS 9
--- NOTE | 2016-09-27 10:02 | NUR ---
CIWA 9 pt c/o "major anxiety" and sweating Ativan 1 mg po prn given
[2016-09-27] MEDS ORDERED: NICOTINE POLACRILEX 4 MG GUM-PK OF TEN BC PRN (10:30)
--- NOTE | 2016-09-27 10:53 | NUR ---
Pt feels less anxious after Ativan prn
[2016-09-27] MEDS: GABAPENTIN 300 MG CAPSULE PO SCH ×2 (12:00→16:19)
[2016-09-27] MEDS: LORAZEPAM 1 MG TABLET PO SCH ×3 (12:01→20:36)
--- NOTE | 2016-09-27 12:14 | NUR ---
VSS CIWA 8 Pt resting in bed. Labs drawn
[2016-09-27 12:33] LABS: BASOPHILS # (AUTO) 0.1 K/uL (0.0-8.0); BASOPHILS % (AUTO) 1.7 % (0.0-2.0); EOSINOPHILS # (AUTO) 0.1 K/uL (0.0-0.7); EOSINOPHILS % (AUTO) 1.5 % (0.0-7.0); HEMATOCRIT 46.2 % (40-50); HEMOGLOBIN 15.5 G/DL (14.0-18.0); LYMPHOCYTES # (AUTO) 1.1 K/UL (0.8-4.8); LYMPHOCYTES % (AUTO) 20.7 % (20.5-51.5); MEAN CORPUSCULAR HEMOGLOBIN 30.9 UUG (27.0-31.0); MEAN CORPUSCULAR HGB CONC 34 g/dL (32.0-37.0); MEAN CORPUSCULAR VOLUME 92.1 FL (82.0-92.0); MONOCYTES # (AUTO) 0.4 K/UL (0.1-1.30); NEUTROPHILS # (AUTO) 3.5 K/UL (1.8-8.9); NEUTROPHILS % (AUTO) 68.1 % (38.5-71.5); PLATELET COUNT (AUTO) 210 K/UL (150-450); RED BLOOD CELL COUNT(AUTO) 5.02 MIL/UL (4.7-6.1); WHITE BLOOD COUNT (AUTO) 5.3 K/UL (4.0-11.2)
[2016-09-27 12:58] LABS: ETHANOL < 3 MG/DL (0-0)
[2016-09-27] MEDS ORDERED: Medication Not On Formulary EA ([Gabapentin] (Neurontin) 600 MG) PO SCH (13:00)
[2016-09-27 13:03] LABS: ALANINE AMINOTRANSFERASE 19 U/L (16-63); ALKALINE PHOSPHATASE 45 U/L (50-136); AMYLASE 29 U/L (25-115); ASPARTATE AMINOTRANSFERASE 23 U/L (15-37); BILIRUBIN,TOTAL 0.6 mg/dL (0.2-1.0); CARBON DIOXIDE 30 mmol/L (21-32); CHLORIDE 103 mmol/L (98-107); CREATININE 1.3 mg/dL (0.6-1.3); GLUCOSE 136 mg/dL (74-106); LIPASE 167 U/L (73-393); MAGNESIUM 2.2 mg/dL (1.8-2.4); TOTAL PROTEIN, SERUM 7.4 g/dL (6.4-8.2); UREA NITROGEN, BLOOD 10 mg/dL (7-18)
[2016-09-27 13:15] LABS: THYROID STIMULATING HORMONE 0.046 mIU/mL (0.358-3.740)
[2016-09-27 15:16] VITALS: BP 111/66
[2016-09-27] MEDS: TOPIRAMATE 25 MG TABLET PO SCH (16:18)
[2016-09-27] MEDS: BUPRENORPHINE HCL 2 MG TAB.SUBL SL SCH ×2 (16:18→20:36)
--- NOTE | 2016-09-27 16:23 | NUR ---
VSS CIWA 8 COWS 7 C/O anxiety, muscle aches, sweating
[2016-09-27 17:32] VITALS: BP 100/60
--- NOTE | 2016-09-27 18:38 | NUR ---
END OF SHIFT NOTE: Report given to caustic cresylate shift superintendent nurse . Patient is a 26-year old, male, admitted 09-26-16 for Heroin, Xanax, Methamphetamine and Cannabis Dependence. Pt placed on a Subutex and Ativan tapers. Tolerating well. Vital signs have remained stable throughout shift. Last CIWA 8 COWS 7 @ 1700. Subutex 4mg sl prn administered @ 0845 and Ativan 1mg po prn given @ 1000 prior to tapers starting. Pt resting in bed. Safety precautions observed. Call light within reach.
[2016-09-27 20:00] VITALS: BP 119/78
--- NOTE | 2016-09-27 20:00 | NUR ---
Start of Shift Patient is a 26-year old, male, admitted for Heroin, Xanax, Methamphetamine and Cannabis Dependence. With reported PMHx of Anxiety, Depression and Withdrawal-induced seizures in 12/2014. Pt is ambulatory with steady gait and with no skin issues. Pt reports being allergic to Penicillins and Cefaclor, on Regular Diet and is Full Code. Pt is AAOx4 and c/o anxiety at this time. No SOB noted. Fall, universal, safety and seizure precaution in place. Call light within reach. No facial grimacing nor c/o pain at this time. Latest COWS=7, CIWA=7. Will continue to monitor.
[2016-09-27] MEDS: diphenhydrAMINE 50 MG CAPSULE PO PRN (20:36)
[2016-09-27] MEDS: HYDROXYZINE PAMOATE 25 MG CAPSULE PO PRN (20:36)
--- NOTE | 2016-09-27 20:38 | NUR ---
RN note PRN Benadryl and Vistaril Pt c/o sleeplessness and increasing anxiety. Administered Benadryl 50 mg PO and Vistaril 50 mg PO. Will reassess.
--- NOTE | 2016-09-27 21:45 | NUR ---
RN note reassess Pt asleep on bed, no SOB nor facial grimacing noted. RR=14. Benadryl and Vistaril are effective.
[2016-09-28] VITALS (7 sets, daily range): BP systolic 110–148; BP diastolic 63–86
--- NOTE | 2016-09-28 07:06 | NUR ---
End of Shift Patient is a 26-year old, male, admitted for Heroin, Xanax, Methamphetamine and Cannabis Dependence. With reported PMHx of Anxiety, Depression and Withdrawal-induced seizures in 12/2014. Pt is ambulatory with steady gait and with no skin issues. Pt reports being allergic to Penicillins and Cefaclor, on Regular Diet and is Full Code. Pt is AAOx4 and c/o anxiety at this time. No SOB noted. Fall, universal, safety and seizure precaution in place. Call light within reach. No facial grimacing nor c/o pain at this time. Latest COWS=5, CIWA=4, slept for 7 hours. Endorsed to AM shift nurse for continuity of care.
[2016-09-28 07:11] LABS: HEPATITIS B SURFACE AG Negative (Negative)
--- NOTE | 2016-09-28 07:45 | NUR ---
BEGINNING OF SHIFT Patient endorsement report received from cnc machinist 2nd shift nurse, all pertinent information discussed. Patient is a 26 year old male admitted on 09/26/2016, patient currently With ongoing 4 day subutex and 4 day Ativan taper as ordered, is currently on day 2 of taper. Patietien with last ciwa score of: 5 and cow score of: 4. as per cnc machinist 2nd shift. Patient received PRN: vistaril and benadryl, during cnc machinist 2nd shift. patient slept for 7 hours. Patient received in room, awake alert and oriented x4, educated regarding plan of care and medication regimen for the day with good verbal understanding. Safety measures in place. call light kept with in reach, will continue to monitor closely.
[2016-09-28] MEDS: MULTIVITAMINS,THERAPEUTIC TABLET PO SCH (08:50)
[2016-09-28] MEDS: FOLIC ACID 1 MG TABLET PO SCH (08:50)
[2016-09-28] MEDS: TOPIRAMATE 25 MG TABLET PO SCH ×2 (08:50→17:02)
[2016-09-28] MEDS: LORAZEPAM 1 MG TABLET PO SCH ×4 (08:50→21:33)
[2016-09-28] MEDS: ESCITALOPRAM OXALATE 10 MG TABLET PO SCH (08:50)
[2016-09-28] MEDS: GABAPENTIN 300 MG CAPSULE PO SCH ×3 (08:50→17:02)
[2016-09-28] MEDS ORDERED: BUPRENORPHINE HCL 2 MG TAB.SUBL SL SCH (09:00)
[2016-09-28] MEDS ORDERED: TUBERCULIN,PURIF.PROT.DERIV. 5 TU/0.1 ML TEST ID ONE (09:00)
[2016-09-28] MEDS: BUPRENORPHINE HCL 2 MG TAB.SUBL SL SCH ×2 (14:43→21:33)
--- NOTE | 2016-09-28 18:53 | NUR ---
END OF SHIFT Patient alert and oriented x4, vital signs were stable during shift. patient compliant with therapeutic plan of care. 0900 Assessment patient presented with:c/o chills, mild bone and joint aches, runny nose, tremors that can be felt but not seen, anxiety, goosebump, barely sweating, mild agitation, with cow score of: 10 and ciwas core of: 6; 1300 assessment patient presented with: c/o chills, mild bone and joint aches, moist eyes, tremors that can be felt but not seen, anxiety , barely sweating, mild agitation with cow score of: 6 and ciwa score of: 6. 1700 assessment patient presented with: heart rate of 90, c/o chills, mild anxiety and tremors that can be felt with cow score of: 5 and ciwa score of: 3. Patient received no PRNs during shift. Patient encouraged to attend group therapies/sessions to learn new coping skills to prevent relapse. patient denies any SI/HI. safety measures in place. call light kept with in reach. patient endorsed to operations supervisor 2nd shift nurse, all pertinent information discussed. will continue to monitor closely.
--- NOTE | 2016-09-28 20:00 | NUR ---
Start of Shift Note: Report received from day shift nurse. Pt is a 26 Y/O male admitted on 09/26/2016 for medically-supervised withdrawal from opiates, benzodiazepines, and methamphetamine. Pt reports relapsing on 09/07/16 and using on a daily basis: 1gm IV heroin, 8-10mg Xanax, and 0.5gm IV methamphetamine. Pt is on 4-day Ativan and Subutex tapers. Pt received with last COWS=5, CIWA=3, and no PRN medications were given during day shift. Full code, allergy to cefaclor and PCN, regular diet. PMHx: anxiety, depression, SZ r/t withdrawal. Pt received in room, and reports anxiety, diaphoresis, chills, stomach cramps, sensitivity to light. Bed is in low position and locked, side rails up x2, call light within reach. Will continue to monitor.
[2016-09-28] MEDS: HYDROXYZINE PAMOATE 25 MG CAPSULE PO PRN (21:33)
[2016-09-28] MEDS: diphenhydrAMINE 50 MG CAPSULE PO PRN (21:33)
--- NOTE | 2016-09-28 21:33 | NUR ---
PRN Vistaril and PRN Benadryl: Patient complains of increased anxiety. Administered PRN Vistaril as ordered. Patient complains of inability to sleep. Administered PRN Benadryl as ordered. Will continue to monitor.
--- NOTE | 2016-09-28 22:35 | NUR ---
PRN Reassessment: Patient is in bed with eyes closed. Respirations are even and unlabored. No s/s of acute distress noted. PRN Vistaril and PRN Benadryl effective AEB pt's ability to rest. All safety precautions are in place. Will continue to monitor.
[2016-09-29] VITALS (7 sets, daily range): BP systolic 104–130; BP diastolic 57–86
--- NOTE | 2016-09-29 | NUR ---
COWS/CIWA Deferred: COWS and CIWA deferred for sleep. V/S stable. All safety precautions are in place. Will continue to monitor. Addendum: 09/29/16 at 0222 by VIRGILIO YEE RN Amended: Links added.
--- NOTE | 2016-09-29 04:00 | NUR ---
COWS/CIWA Deferred: COWS and CIWA deferred for sleep. V/S stable. All safety precautions are in place. Will continue to monitor. Addendum: 09/29/16 at 0457 by VIRGILIO YEE RN Amended: Links added.
--- NOTE | 2016-09-29 06:38 | NUR ---
End of Shift Note: Pt is a 26 Y/O male admitted to [facility] on 09/26/2016 for medically-supervised withdrawal from opiates, benzodiazepines, and methamphetamine. PMHx: anxiety, depression, SZ r/t withdrawal. Pt is a full code. Pt reports allergy to cefaclor and PCN. Pt is on a regular diet. Pt reports relapsing on 09/07/16 and using 1gm IV heroin, 8-10mg Xanax, and 0.5gm IV methamphetamine on a daily basis. Pt continues on 4-day Ativan and Subutex tapers. Scheduled medication regime effectively managed s/s of withdrawal this shift, in addition to PRN Vistaril for anxiety. Last COWS=4, CIWA=8 at 20:00. V/S stable throughout shift. Total fluid intake this shift: 1506 ml; output: urine x 2 and BM x 0. PRN Benadryl was given for inability to sleep, which was effective as pt slept 8 hours this shift. Pt is currently in bed, all needs have been attended and met. Pt endorsed to day shift nurse.
--- NOTE | 2016-09-29 07:21 | NUR ---
BEGINNING OF SHIFT Patient endorsement report received from brewery technician nurse, all pertinent information discussed. Patient is a 26 year old male admitted on 09/26/2016, patient currently With ongoing 4 day Subutex and 4 day Ativan taper as ordered, is currently on day 3 of taper. Patient with last ciwa score of: 8 and cow score of: 4. as per brewery technician. Patient received PRN: Vistaril and Benadryl, during brewery technician. patient slept for 8 hours. Patient received in room, awake alert and oriented x4, educated regarding plan of care and medication regimen for the day with good verbal understanding. Safety measures in place. call light kept with in reach, will continue to monitor closely.
[2016-09-29] MEDS: MULTIVITAMINS,THERAPEUTIC TABLET PO SCH (08:53)
[2016-09-29] MEDS: TOPIRAMATE 25 MG TABLET PO SCH ×2 (08:54→17:04)
[2016-09-29] MEDS: ESCITALOPRAM OXALATE 10 MG TABLET PO SCH (08:54)
[2016-09-29] MEDS: FOLIC ACID 1 MG TABLET PO SCH (08:54)
[2016-09-29] MEDS: GABAPENTIN 300 MG CAPSULE PO SCH ×3 (08:54→17:04)
[2016-09-29] MEDS: LORAZEPAM 1 MG TABLET PO SCH ×3 (08:55→21:37)
[2016-09-29] MEDS: BUPRENORPHINE HCL 2 MG TAB.SUBL SL SCH ×3 (08:55→21:37)
[2016-09-29] MEDS ORDERED: BUPRENORPHINE HCL 2 MG TAB.SUBL SL SCH (15:00)
--- NOTE | 2016-09-29 18:53 | NUR ---
END OF SHIFT Patient alert and oriented x4, vital signs were stable during shift. patient compliant with therapeutic plan of care. 0900 Assessment patient presented with: heart rate of 86, c/o chills, mild bone and joint aches, mild anxiety, barely sweating, and mild agitation with cow score of: 4 and ciwa score of: 3; 1300 assessment patient presented with: c/o chills, mild bone and joint aches, mild anxiety, barely sweating, and mild agitation with cow score of: 3 and ciwa score of: 3. 1700 assessment patient presented with: c/o chills, mild bone and joint aches, mild anxiety, mild agitation, barely sweating with cow score of: 3 and ciwa score of: 3. Patient received no PRNs during shift. Patient encouraged to attend group therapies/sessions to learn new coping skills to prevent relapse. patient denies any SI/HI. safety measures in place. call light kept with in reach. patient endorsed to marker machine attendant nurse, all pertinent information discussed. will continue to monitor closely.
--- NOTE | 2016-09-29 20:00 | NUR ---
Start of Shift Note: Report received from day shift nurse. Pt is a 26yo male admitted on 09/26/2016 for medically-supervised withdrawal from opiates, benzodiazepines, and methamphetamine. Pt reports using 1gm IV heroin, 8-10mg Xanax, and 0.5gm IV methamphetamine daily for 3 weeks. Pt is on 4-day Ativan and Subutex tapers. Pt received with last COWS=3, CIWA=3, and no PRN medications were given during day shift. Pt is a full code, reports allergy to cefaclor and PCN, and is on a regular diet. PMHx: anxiety, depression, SZ r/t withdrawal. Pt received in room and reports chills, diaphoresis, and anxiety. Bed is in low position and locked, side rails up x2, call light within reach. Will continue to monitor.
[2016-09-29] MEDS: diphenhydrAMINE 50 MG CAPSULE PO PRN (21:37)
[2016-09-29] MEDS: HYDROXYZINE PAMOATE 25 MG CAPSULE PO PRN (21:37)
--- NOTE | 2016-09-29 21:39 | NUR ---
PRN Benadryl and PRN Vistaril: Patient complains of inability to sleep. Administered PRN Benadryl as ordered. Patient complains of increased anxiety. Administered PRN Vistaril as ordered. Will continue to monitor.
--- NOTE | 2016-09-29 22:45 | NUR ---
PRN Reassessment: Patient is in bed with eyes closed. Respirations are even and unlabored. No s/s of acute distress noted. PRN Vistaril and PRN Benadryl effective AEB patient's ability to rest. Will continue to monitor.
[2016-09-30] VITALS: BP 101/60
--- NOTE | 2016-09-30 | NUR ---
COWS and CIWA Deferred: COWS and CIWA assessments are deferred for sleep. V/S stable. All safety precautions are in place. Will continue to monitor. Addendum: 09/30/16 at 0125 by VIRGILIO YEE RN Amended: Links added.
--- NOTE | 2016-09-30 04:00 | NUR ---
Vitals Refused, COWS/CIWA Deferred: Patient refuses vitals at this time. COWS/CIWA deferred for sleep. All safety precautions are in place. Will continue to monitor. Addendum: 09/30/16 at 0431 by VIRGILIO YEE RN Amended: Links added.
--- NOTE | 2016-09-30 06:54 | NUR ---
End of Shift Note: Pt is a 26M admitted on 09/26/2016 for medically-supervised withdrawal from opiates, BZO, and methamphetamine. PMHx of anxiety, depression, and SZ. Full code, allergy to cefaclor and PCN, regular diet. Pt reported using 1gm IV heroin, 8-10mg Xanax, and 0.5gm IV methamphetamine daily for 3 weeks. Pt is to start day 4 of 4-day Ativan and Subutex tapers today. Scheduled medication regime effectively managed s/s of withdrawal this shift, in addition to PRN Vistaril for anxiety. Last COWS=3, CIWA=4 at 20:00. V/S stable throughout shift. Total fluid intake this shift: 1000 ml; output: urine x 2 and BM x 0. PRN Benadryl was given for inability to sleep, which was effective and pt slept 9 hours this shift. Pt is currently in bed, all needs have been attended and met. Pt endorsed to day shift nurse.
[2016-09-30 08:00] VITALS: BP 105/63
--- NOTE | 2016-09-30 08:10 | NUR ---
START OF SHIFT Received patient this morning alert and oriented x4. Patient presents with flat affect. He reports feeling "Alright" and was in and out of sleep last night. He is on 4 day Ativan/4 day Subutex taper. No PRNs given per night nurse. Patient slept 9 hours. COWS 2 CIWA 4 at 0800 this morning. Encouraged patient to drink increased amounts of fluids this shift. Encouraged attendance of groups and activities. Will provide safe and supportive environment. Informed patient to notify RN if s/s of w/d worsen. Will continue to monitor.
[2016-09-30] MEDS: LORAZEPAM 1 MG TABLET PO SCH ×2 (08:57→21:30)
[2016-09-30] MEDS: FOLIC ACID 1 MG TABLET PO SCH (08:57)
[2016-09-30] MEDS: GABAPENTIN 300 MG CAPSULE PO SCH ×3 (08:57→16:16)
[2016-09-30] MEDS: ESCITALOPRAM OXALATE 10 MG TABLET PO SCH (08:57)
[2016-09-30] MEDS: BUPRENORPHINE HCL 2 MG TAB.SUBL SL SCH ×2 (08:57→21:30)
[2016-09-30] MEDS: MULTIVITAMINS,THERAPEUTIC TABLET PO SCH (08:57)
[2016-09-30] MEDS: TOPIRAMATE 25 MG TABLET PO SCH ×2 (08:57→16:16)
[2016-09-30 12:00] VITALS: BP 112/70
[2016-09-30 16:00] VITALS: BP 117/66
--- NOTE | 2016-09-30 17:24 | NUR ---
Therapist encouraged client to attend group therapy on a daily basis. Client was reminded about group times. Client stated that he would attend.
--- NOTE | 2016-09-30 18:35 | NUR ---
END OF SHIFT NOTE Patient continues on 4 day Subutex/ 4 Day Ativan taper and tolerating well. No PRNs needed during shift as detox meds are effective. Last COWS 2 CIWA 4. Patient isolated self in room during shift with little socialization. Patient had uneventful shift. All needs have been met. Safety measures in place. Will endorse to oncoming nurse.
[2016-09-30 20:00] VITALS: BP 133/80
--- NOTE | 2016-09-30 20:00 | NUR ---
1999 Patient received awake, alert and lying in his bed watching television and eating a food snack. Upon seeing nurse, patient smiles and states, " Hi Wendie, how you doin?" Patient's color is pink and his skin is warm, dry and intact. Patient is oriented to person, place, day, date, time and his personal situation. Lung sounds are clear bilaterally and active bowel sounds are noted X 4 abdominal Quads, per auscultation. Patient states that he has been " doing all right" and he has been eating his regular diet trays, having frequent food snacks and taking fluids ad vinay since his admission,with no real gastric issues. Patient states further that he has been regularly attending [employer] groups. Patient denies any pain or other discomforts and he offers no requests at this time. Vital signs are: 98-64-16 133/80, O2 Sat 98%, COWS 2,CIWA 4. Patient was admitted on 09/26/16 for: Heroin, Xanax, Methamphetamine and Marijuana withdrawal and he has been on a 4-Day Ativan and a 4-Day Subutex medication taper per MD order, which he has apparently been tolerating well. Patient is pleasant, cooperative and verbally appropriate when interacting with nurse. Bed is locked and in lowest position, bed rails are up X 1 and call light within patient's easy reach.
[2016-09-30] MEDS: HYDROXYZINE PAMOATE 25 MG CAPSULE PO PRN (21:31)
[2016-09-30] MEDS: diphenhydrAMINE 50 MG CAPSULE PO PRN (21:31)
--- NOTE | 2016-09-30 21:31 | NUR ---
PRN MEDICATIONS: Prn Benadryl 50 mg p.o. given per request for sleep medication and Prn Vistaril 50 mg p.o. given per c/o some anxiety.
--- NOTE | 2016-09-30 22:31 | NUR ---
REASSESSMENT PRN MEDICATIONS: Patient is resting comfortably, with eyes closed and respirations quiet, even, unlabored at 12.
--- NOTE | 2016-10-01 | NUR ---
Patient refused to be awakened for V/S to be taken at this time.
--- NOTE | 2016-10-01 04:00 | NUR ---
Patient refused to be awakened for V/S to be done at this time.
--- NOTE | 2016-10-01 06:30 | NUR ---
0630 Patient slept a total of 6 hours and 30 minutes. Total intake was 1,000 ml p.o. and he had 1 void and no stools. Prn medications given noted separately per floor protocol. V/SS afebrile, last COWS 2, last CIWA 4 at 0000. Patient is presently sleeping comfortably in stable condition, with eyes closed and respirations unlabored at 12.
--- NOTE | 2016-10-01 07:00 | NUR ---
Start of Shift Notes: Patient received in his room. Alert and oriented x 4. Able to make needs known. Respirations even and unlabored. No SOB noted. Skin warm and dry to touch. Abdomen soft and non-distended. BS (+) in all 4 quadrants. No complains of nausea, vomiting, diarrhea or constipation noted. No complains of abdominal discomfort noted. Voids independently. Ambulatory ad vinay with steady gait. Patient is a 26 year old male admitted for opiate and BZO dependence who was placed on a 4-day Ativan and Subutex taper as ordered. No adverse reactions noted. Has past medical hx of anxiety, depression, and seizures. NKA. Full code. Regular diet. Educated patient on his current medication regimen and his current plan of care. Encouraged oral fluid intake and encouraged group participation to learn new skills to prevent relapse. Slept for 6 hours. Last CIWA 2/COWS 4. Will continue to monitor closely.
[2016-10-01 08:00] VITALS: BP 118/70
[2016-10-01] MEDS: FOLIC ACID 1 MG TABLET PO SCH (08:22)
[2016-10-01] MEDS: ESCITALOPRAM OXALATE 10 MG TABLET PO SCH (08:22)
[2016-10-01] MEDS: TOPIRAMATE 25 MG TABLET PO SCH ×2 (08:22→16:09)
[2016-10-01] MEDS: MULTIVITAMINS,THERAPEUTIC TABLET PO SCH (08:22)
[2016-10-01] MEDS: GABAPENTIN 300 MG CAPSULE PO SCH ×3 (08:22→16:09)
[2016-10-01 12:00] VITALS: BP 118/70
[2016-10-01 16:00] VITALS: BP 135/87
[2016-10-01 17:07] LABS: *AMPHETAMINE, URINE NEGATIVE (NEGATIVE); *BARBITURATE, URINE NEGATIVE (NEGATIVE); *CANNABINOID, URINE POSITIVE (NEGATIVE); *COCCAINE, URINE NEGATIVE (NEGATIVE); *OPIATE, URINE NEGATIVE (NEGATIVE); *PHENCYCLIDINE SCREEN,URINE NEGATIVE (NEGATIVE)
--- NOTE | 2016-10-01 18:53 | NUR ---
End of Shift Notes: Patient is a 26 year old male admitted for opiate and BZO dependence who was placed on 4-day Subutex and 4-day Ativan taper as ordered. No adverse reactions noted. Has past medical hx of anxiety, depression and seizures related to withdrawal. Prior to admission, patient was using Heroin 1 gram IV, 8-10mg of Xanax, 0.5grams of Methamphetamine and 2 grams of marijuana daily. Patient completed taper today and will be discharging tomorrow. UDS in and resulted. Withdrawal symptoms were closely monitored. Initial COWS 2/CIWA 2, Last COWS 1/CIWA 1. Per patient, Subutex and Ativan has helped him with his withdrawal symptoms. Requires encouragement to comply policys rules and protocols.
[2016-10-01 20:00] VITALS: BP 137/84
--- NOTE | 2016-10-01 20:00 | NUR ---
1999 Patient received awake, alert and lying in bed watching television. Upon seeing nurse, patient states, " Hi Wendie. I'm fine and how are you?" Patient's color is pink and his skin is warm, dry and intact. Patient's overall appearance is disheveled. Patient is oriented to person, place, day, date, time and his personal situation. Patient states that he is being discharged tomorrow " to [place], and he states further, " I heard it's a nice place". Vital signs are: 97.9-64-18 137/84, O2 sat 99%, COWS 3, CIWA 1. Patient states that he continues to attend [facility] groups, eat his regular diet trays and take fluids ad vinay, with no gastric issues. Patient offers no requests for or c/o anything at this time. Patient was admitted on 09/26/16 for: Heroin, Xanax, Methamphetamine and Marijuana withdrawal, and ordered medication tapers of Subutex and Ativan, prescribed for withdrawal symptoms, have been completed at this time. Patient is friendly, cooperative and verbally appropriate when interacting with nurse, however overall mood/affect is a bit flat and guarded. Bed is locked and in lowest position, bed rails are up X 2 and call light within patient's easy reach.
[2016-10-01] MEDS: diphenhydrAMINE 50 MG CAPSULE PO PRN (21:29)
[2016-10-01] MEDS: HYDROXYZINE PAMOATE 25 MG CAPSULE PO PRN (21:29)
--- NOTE | 2016-10-01 21:29 | NUR ---
PRN MEDICATIONS: Prn Motrin 400 mg p.o. given per request for c/o headache, 5/10 pain scale. Prn Vistaril 50 mg p.o. given per request for c/o anxiety. Prn Benadryl 50 mg p.o per request for sleep medication.
--- NOTE | 2016-10-01 22:29 | NUR ---
REASSESSMENT PRN MEDICATIONS: Patient is downstairs on hospital patio. Unable to assess patient at this time.
--- NOTE | 2016-10-02 | NUR ---
Patient refused to be awakened for V/S to be done at this time.
--- NOTE | 2016-10-02 04:00 | NUR ---
Patient refused to be awakened for V/S to be taken at this time.
--- NOTE | 2016-10-02 06:30 | NUR ---
0630 Patient slept a total of 6 .5 hours and he had 2 voids and no stools. Total intake was 1,506 ml p.o. Prn medications given noted separately per floor protocol. V/SS afebrile, last COWS 3, last CIWA 1 at 0000. Patient is presently resting comfortably in stable condition, with eyes closed and respirations quiet, even, unlabored at 12
--- NOTE | 2016-10-02 07:34 | NUR ---
BEGINNING OF SHIFT Patient endorsement report received from date night caregiver nurse, all pertinent information discussed. Patient is a 26 year old male admitted on 09/26/2016, Patient completed Ativan and Subutex taper as ordered, and is scheduled to be discharged to morning side, noted self motivated towards sobriety. Patient received PRN: Vistaril and Benadryl, and Motrin during date night caregiver. patient slept for 7 hours. Patient received in room, awake alert and oriented x4, educated regarding plan of care and medication regimen for the day with good verbal understanding. Safety measures in place. call light kept with in reach, will continue to monitor closely.
[2016-10-02 08:15] VITALS: BP 117/75
[2016-10-02] MEDS: TOPIRAMATE 25 MG TABLET PO SCH (08:47)
[2016-10-02] MEDS: GABAPENTIN 300 MG CAPSULE PO SCH (08:47)
[2016-10-02] MEDS: FOLIC ACID 1 MG TABLET PO SCH (08:47)
[2016-10-02] MEDS: ESCITALOPRAM OXALATE 10 MG TABLET PO SCH (08:47)
[2016-10-02] MEDS: MULTIVITAMINS,THERAPEUTIC TABLET PO SCH (08:48)
--- NOTE | 2016-10-02 10:08 | NUR ---
DISCHARGE Patient discharged off of the unit at 0945, prior to discharge education and teaching regarding all discharge instructions were provided with good verbal understanding. Patient discharged to morning side, noted self motivated towards sobriety. vital signs were stable. no s/sx of withdrawal, last cow score of: 0 and last ciwa score of: 0. Patients prescriptions and all discharge instructions were placed into patients personal duffel bag. Patient off the unit at 0945 in stable condition.
== END 2016-10-02 09:45 | disposition home or self-care (01) | DRG 895 ==
LOC: SRC 20:04
PROVIDERS: ADMIT Internal Medicine; ATTEND Internal Medicine
PROC: HZ2ZZZZ Detoxification Services for Substance Abuse Treatment (ICD-10-PCS; principal; 2016-09-26)
PROC: HZ31ZZZ Individual Counseling for Substance Abuse Treatment, Behavioral (ICD-10-PCS; 2016-09-27)
PROC: HZ41ZZZ Group Counseling for Substance Abuse Treatment, Behavioral (ICD-10-PCS; 2016-09-30)
DX: F13.230 Sedative, hypnotic or anxiolytic dependence with withdrawal, uncomplicated (principal); F11.23 Opioid dependence with withdrawal; F15.23 Other stimulant dependence with withdrawal; Z59.0 Homelessness; F17.210 Nicotine dependence, cigarettes, uncomplicated; Z79.899 Other long term (current) drug therapy; F32.9 Major depressive disorder, single episode, unspecified; F41.9 Anxiety disorder, unspecified
CPT/HCPCS: 36415; 70030-TC; 80307; 83690; 83735; 84443; 85025; 86580; 86592; 86705; 86803; 87340; 87806; G0480; Q0163